=== PATIENT | female | born 1955 ===

== ENCOUNTER 2017-03-06 07:40 | Day surgery (SDC) | payer OTHER ==
--- NOTE | ~2017-03-06 | OP ---
Record Of Operation [facility] [address] [place] [address] NAME: ANUSHA HORTON : 51 STATUS : [facility] [place] PAT#: [id number] AGE: 61 ADM/REG DATE : 03/06/17 MR#: [id number] REPORT SERV DATE: 03/06/17 DICTATED BY: KATHY GARCIA DATE: 03/06/17 REPORT STATUS : Draft TRANSCRIBED BY: FILI DATE: 03/06/17 DATE OF PROCEDURE: 03/06/2017 PREPROCEDURE DIAGNOSIS: History of anal cancer status post chemo and radiation. 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 PROCEDURE: Screening colonoscopy. DESCRIPTION OF PROCEDURE: The patient was taken to the endoscopy suite, positioned in the left lateral decubitus position. Informed consent was obtained followed by IV sedation delivered by [employer]. Digital rectal exam was performed, slightly decreased sphincter tone, consistent with her prior treatment with radiation. The scope was navigated without difficulty to the ileocecal valve where the appendiceal orifice was identified. Prep was moderately adequate. There was some fibrous material, which to clogged the channel of the scope, but the appendiceal orifice, cecal straps, and ileocecal valve were all identified. More than 80% of the mucosa was identified. No polyps were noted. A few scattered diverticula throughout the sigmoid colon and then between 0 and 5 cm some mild radiation proctitis from the dentate line to the rectum on retroflexion. The scope was withdrawn. She tolerated the procedure well, and she will need a repeat in five years. CATIE/FILI Kathy Garcia M.D. / [id number] CC: Damari Mccord MD
[~2017-03-06 07:40] MED LIST: ALEVE220 MG PO; ALLEGRA-D12 HOUR PO; ALLEGRA180 PO; BEN25 PO; CITRACAL PO; FISH-EPA1000 MG PO; FLONASE NAS; FOSAMAX70 MG PO; LIPOTRIAD1 CAP PO; LORT7 PO; MAGNESIUM PO; MEGA RED KRILL OIL; MIRALAX POWDER1 PKT PO; MIRALAXPKT PO; MULTIVITAMI1 PO; OSTEO-BIFLEX PO; POTASSIUM GLUCO99 MG; PRILO PO; PROBIOTIC; RECLAST IV; VITAMIN D31000 UNIT PO; ZYRTEC ALLGY10 MG PO
== END 2017-03-06 23:59 | disposition home health service (06) ==
LOC: DMU 07:40
PROVIDERS: Surgery
PROC: 0DJD8ZZ Inspection of Lower Intestinal Tract, Via Natural or Artificial Opening Endoscopic (ICD-10-PCS; principal; 2017-03-06 09:30)
DX: Z12.11 Encounter for screening for malignant neoplasm of colon (principal); K57.30 Diverticulosis of large intestine without perforation or abscess without bleeding; K21.9 Gastro-esophageal reflux disease without esophagitis; M85.80 Other specified disorders of bone density and structure, unspecified site; M19.90 Unspecified osteoarthritis, unspecified site; K62.7 Radiation proctitis; Z98.890 Other specified postprocedural states; Z86.010 Personal history of colon polyps